=== PATIENT | female | born 1950 | race Caucasian/White ===

== ENCOUNTER → 2018-01-09 14:03 | Outpatient (CLI) | payer MEDICARE, SELFPAY | PROVIDERS: Family Provider Family Medicine; PCP Family Medicine; Visit Provider Family Medicine | DX: R30.0 Dysuria (principal) | CPT/HCPCS: 87086 ==

== ENCOUNTER → 2018-04-29 16:46 | Outpatient (CLI) | payer MEDICARE, SELFPAY ==
[2018-05-02 22:51] LABS: Fecal Immunochemical Test NOT DETECTED
== END ==
PROVIDERS: Family Provider Family Medicine; PCP Family Medicine; Visit Provider Family Medicine
DX: Z12.11 Encounter for screening for malignant neoplasm of colon (principal)
CPT/HCPCS: 82274

== ENCOUNTER → 2019-09-08 11:03 | Outpatient (CLI) | payer MEDICARE, SELFPAY ==
--- NOTE | 2019-09-08 11:05 | DI.US.S_ITS ---
PROCEDURE: US SOFT TISSUE HEAD AND NECK INDICATIONS: RT SIDE BASE OF NECK W/SOFT TISSUE MASS, NONFLUCTUANT TECHNIQUE: Real-time scanning was performed of the neck region of interest, with image documentation. COMPARISON: None. FINDINGS: Small lymph nodes identified in the region of reported abnormal mass in the right neck and measures 0.8 cm in short axis. Incidentally noted is a small lymph node in the left neck the same level that measures 0.6 in meters in short axis. No fluid collections identified that would be concerning for abscess. IMPRESSION: Small, nonpathologic-sized neck lymph nodes. If there is continued clinical concern for neck pathology, CT scan soft tissues of the neck with contrast should be considered for further evaluation. Dictated by: Charito Grayson MD, PhD on 09/08/2019 at 17:32 Approved by: Charito Grayson MD, PhD on 09/08/2019 at 17:34
== END ==
PROVIDERS: PCP Family Medicine; Visit Provider Family Medicine
DX: R22.1 Localized swelling, mass and lump, neck (principal)
CPT/HCPCS: 76536

== ENCOUNTER → 2020-06-09 08:14 | Outpatient (CLI) | payer MEDICARE, SELFPAY ==
[2020-06-09 10:01] LABS: Add Manual Diff / Slide Review NO; Basophils Absolute Auto 100 /uL (0-100); Basophils Percent Auto 0.8 % (0-2); Eosinophils Absolute Auto 100 /uL (0-450); Eosinophils Percent Auto 1.4 % (2-4); Hematocrit 44.1 % (36-46); Hemoglobin 14.9 g/dL (12.0-16.0); Lymphocytes Absolute Auto 1800 /uL (1100-4500); Lymphocytes Percent Auto 24.8 % (25-40); Mean Corpuscular HGB Conc 33.9 % (30-36); Mean Corpuscular Volume 85.6 fL (80-100); Monocytes Absolute Auto 500 /uL (0-900); Monocytes Percent Auto 6.5 % (3-14); Neutrophils Absolute Auto 4800 /uL (1500-7000); Neutrophils Percent Auto 66.5 % (50-75); Platelet Count 265 X10^3/uL (150-400); Red Blood Cell Count 5.15 X10^6/uL (4.0-5.2); Red Cell Distribution Width 13.4 % (11.6-14.8); White Blood Cell Count 7.3 X10^3/uL (4.5-11.0)
[2020-06-09 10:25] LABS: Alanine Aminotransferase 20 IU/L (<35); Albumin 4.1 g/dL (3.5-5.0); Albumin Globulin Ratio 1.4 (1.0-2.8); Alkaline Phosphatase 106 U/L (38-126); Aspartate Aminotransferase 25 IU/L (14-36); Blood Urea Nitrogen 16 mg/dL (7-17); Calcium 9.2 mg/dL (8.4-10.2); Carbon Dioxide 26 mmol/L (22-32); Chloride 106 mmol/L (98-107); Cholesterol 295 mg/dL (140-199); Estimated Glomerular Filt Rate > 60.0 mL/min (>60); Glucose 110 mg/dL (80-110); HDL Cholesterol 46 mg/dL (40-60); HEMOLYSIS < 15 (0-50); LDL Cholesterol Calculated 177 mg/dL (<100); Potassium 4.4 mmol/L (3.4-5.1); Sodium 138 mmol/L (137-145); Total Protein 7.1 g/dL (6.3-8.2); Triglycerides 361 mg/dL (35-150)
[2020-06-12 16:26] LABS: Vitamin B12 425 pg/mL (239-931)
[2020-06-12 16:54] LABS: Vitamin D 25 Hydroxy (D3) < 12.8 ng/mL (30.0-100.0)
== END ==
PROVIDERS: PCP Family Medicine; Referring Provider Family Medicine; Visit Provider Family Medicine
DX: I10 Essential (primary) hypertension (principal); Z86.39 Personal history of other endocrine, nutritional and metabolic disease; Z79.01 Long term (current) use of anticoagulants; E55.9 Vitamin D deficiency, unspecified
CPT/HCPCS: 36415; 80053; 80061; 82306; 82607; 85025

== ENCOUNTER → 2020-07-08 14:43 | Outpatient (CLI) | payer MEDICARE, SELFPAY ==
--- NOTE | 2020-07-08 14:47 | DI.MG.S_ITS ---
BILATERAL DIGITAL SCREENING MAMMOGRAM 3D/2D WITH CAD: 07/08/2020 CLINICAL: Routine screening. Comparison is made to exams dated: 06/04/2007 mammogram, 10/10/2008 mammogram, and 05/06/2014 mammogram - outside location. The tissue of both breasts is predominantly fatty. Current study was also evaluated with a Computer Aided Detection (CAD) system. There is a benign calcification in the right breast. There also are benign post operative findings in the left breast. There is a mole marker on both breasts. There is a 6 mm oval asymmetry with a circumscribed margin in the right breast at 11 o'clock anterior depth. No other significant masses, calcifications, or other findings are seen in either breast. IMPRESSION: INCOMPLETE: NEEDS ADDITIONAL IMAGING EVALUATION The 6 mm oval asymmetry in the right breast is indeterminate. A diagnostic mammogram and ultrasound is recommended. This exam was interpreted at Station ID: [id number]. NOTE: For mammograms, a report in lay terms will be sent to the patient. Approximately 15% of breast malignancies will not be visualized mammographically. In the management of a palpable breast mass, a negative mammogram must not discourage biopsy of a clinically suspicious lesion. Electronically Signed By: Frederick Welsh acr/:07/09/2020 15:06:16 letter sent: Additional Imaging Needed ACR BI-RADS Category 0: Incomplete [id number]
== END ==
PROVIDERS: PCP Family Medicine; Referring Provider Family Medicine; Visit Provider Family Medicine
DX: Z12.31 Encounter for screening mammogram for malignant neoplasm of breast (principal)
CPT/HCPCS: 77063; 77067

== ENCOUNTER → 2021-01-19 09:02 | Outpatient (CLI) | payer MEDICARE, SELFPAY ==
[2021-01-19 10:37] LABS: Cholesterol 296 mg/dL (140-199); HDL Cholesterol 46 mg/dL (40-60); LDL Cholesterol Calculated 175 mg/dL (<100); Triglycerides 374 mg/dL (35-150)
== END ==
PROVIDERS: PCP Family Medicine; Referring Provider Internal Medicine Cardiovascular Disease; Visit Provider Internal Medicine Cardiovascular Disease
DX: E78.00 Pure hypercholesterolemia, unspecified (principal); I47.1 Supraventricular tachycardia
CPT/HCPCS: 36415; 80061

== ENCOUNTER → 2021-08-21 09:49 | Outpatient (ROUT) | payer MEDICARE, SELFPAY ==
[2021-08-21 10:28] LABS: Creatinine Urine Random 150.5 mg/dL
[2021-08-21 10:31] LABS: Microalbumi Creatinin Ratio Ur 16.6 ug/mg CR (<30); Microalbumin Urine Random 2.5 mg/dL (0-1.6)
== END ==
PROVIDERS: PCP Family Medicine; Visit Provider Family Medicine
DX: I10 Essential (primary) hypertension (principal)
CPT/HCPCS: 82043; 82570

== ENCOUNTER → 2022-03-14 09:02 | Outpatient (CLI) | payer MEDICARE, SELFPAY ==
[2022-03-14 10:44] LABS: Add Manual Diff / Slide Review NO; Basophils Absolute Auto 0 /uL (0-100); Basophils Percent Auto 0.8 % (0-2); Eosinophils Absolute Auto 100 /uL (0-450); Eosinophils Percent Auto 1.5 % (2-4); Hematocrit 42.6 % (36-46); Hemoglobin 14.8 g/dL (12.0-16.0); Lymphocytes Absolute Auto 1700 /uL (1100-4500); Mean Corpuscular HGB Conc 34.7 % (30-36); Mean Corpuscular Volume 83.4 fL (80-100); Monocytes Absolute Auto 400 /uL (0-900); Monocytes Percent Auto 6.2 % (3-14); Neutrophils Absolute Auto 3600 /uL (1500-7000); Neutrophils Percent Auto 62.5 % (50-75); Platelet Count 248 X10^3/uL (150-400); Red Blood Cell Count 5.11 X10^6/uL (4.0-5.2); White Blood Cell Count 5.8 X10^3/uL (4.5-11.0)
[2022-03-14 11:13] LABS: Alanine Aminotransferase 19 IU/L (<35); Albumin 3.9 g/dL (3.5-5.0); Albumin Globulin Ratio 1.4 (1.0-2.8); Alkaline Phosphatase 105 U/L (38-126); Aspartate Aminotransferase 26 IU/L (14-36); BUN Creatinine Ratio 18.6 (6-22); Bilirubin Total 0.7 mg/dL (0.2-1.3); Blood Urea Nitrogen 18 mg/dL (7-17); Carbon Dioxide 25 mmol/L (22-32); Chloride 104 mmol/L (98-107); Cholesterol 276 mg/dL (140-199); Estimated Glomerular Filt Rate > 60 mL/min (>60); Globulin 2.8 g/dL (1.7-4.1); Glucose 102 mg/dL (80-110); HDL Cholesterol 46 mg/dL (40-60); HEMOLYSIS < 15 (0-50); LDL Cholesterol Calculated 178 mg/dL (<100); Potassium 4.6 mmol/L (3.4-5.1); Sodium 137 mmol/L (137-145); Total Protein 6.7 g/dL (6.3-8.2); Triglycerides 259 mg/dL (35-150)
[2022-03-14 11:57] LABS: Vitamin B12 545 pg/mL (239-931)
[2022-03-22 12:08] LABS: 1,25-Dihydroxy, Vitamin D-2 <10 pg/mL (.)
== END ==
PROVIDERS: PCP Family Medicine; Referring Provider Family Medicine; Visit Provider Family Medicine
DX: D68.59 Other primary thrombophilia (principal); I10 Essential (primary) hypertension; Z79.01 Long term (current) use of anticoagulants; Z86.718 Personal history of other venous thrombosis and embolism; Z13.220 Encounter for screening for lipoid disorders; E55.9 Vitamin D deficiency, unspecified
CPT/HCPCS: 36415; 80053; 80061; 82607; 82652; 85025

== ENCOUNTER → 2022-11-05 10:00 | Outpatient (CLI) | payer MEDICARE, SELFPAY ==
[2022-11-05 11:59] LABS: BUN Creatinine Ratio 15.6 (6-22); Blood Urea Nitrogen 14 mg/dL (7-17); Calcium 9.1 mg/dL (8.4-10.2); Carbon Dioxide 24 mmol/L (22-32); Chloride 102 mmol/L (98-107); Estimated Glomerular Filt Rate > 60 mL/min (>60); Glucose 102 mg/dL (80-110); HEMOLYSIS < 15 (0-50); Potassium 4.5 mmol/L (3.4-5.1); Sodium 136 mmol/L (137-145)
[2022-11-05 12:26] LABS: TSH w/ Reflex to FT4 1.76 uIU/mL (0.47-4.68)
[2022-11-05 15:29] LABS: Creatinine Urine Random 251.5 mg/dL
[2022-11-05 15:31] LABS: Microalbumi Creatinin Ratio Ur 18.2 ug/mg CR (<30); Microalbumin Urine Random 4.6 mg/dL (0-1.6)
== END ==
PROVIDERS: PCP Family Medicine; Referring Provider Internal Medicine Cardiovascular Disease; Visit Provider Internal Medicine Cardiovascular Disease
DX: I10 Essential (primary) hypertension (principal); E66.9 Obesity, unspecified
CPT/HCPCS: 36415; 80048; 82043; 82570; 84443

== ENCOUNTER → 2022-11-06 13:01 | Outpatient (CLI) | payer MEDICARE, SELFPAY ==
--- NOTE | 2022-11-06 13:03 | DI.MG.S_ITS ---
BILATERAL DIGITAL DIAGNOSTIC MAMMOGRAM 3D/2D SHORT-TERM FOLLOW-UP: 11/06/2022 CLINICAL: Short tem follow of the Right breast; Due Bilateral. Comparison is made to exams dated: 07/08/2020 mammogram - [facility] and 05/06/2014 mammogram - outside [facility]. There are scattered areas of fibroglandular density in both breasts (category b / 25%-50% glandular tissue). There is a stable 6 mm oval asymmetry with a circumscribed margin in the right breast at 11 o'clock anterior depth. No other significant masses, calcifications, or other findings are seen in either breast. IMPRESSION: INCOMPLETE: NEEDS ADDITIONAL IMAGING EVALUATION The stable 6 mm oval asymmetry in the right breast at 11 o'clock anterior depth is indeterminate. A targeted ultrasound is recommended and will immediately follow. Based on the Tyrer Cuzick model (a risk assessment model) the patient's lifetime risk is 3.4% and her 10 year risk is 2.8%. According to the ACR, ACS, and NCCN guidelines, an annual breast MRI exam along with mammogram is recommended if the patient's lifetime risk is 20% or greater. This exam was interpreted at Station ID: [id number]. NOTE: For mammograms, a report in lay terms will be sent to the patient. Approximately 15% of breast malignancies will not be visualized mammographically. In the management of a palpable breast mass, a negative mammogram must not discourage biopsy of a clinically suspicious lesion. Electronically Signed By: Lorne Diaz M.D. slc/:11/06/2022 13:44:12 ACR BI-RADS Category 0: Incomplete 3340F
--- NOTE | 2022-11-06 13:03 | DI.US.S_ITS ---
LIMITED ULTRASOUND OF RIGHT BREAST: 11/06/2022 CLINICAL: Patient returns today to evaluate a focal asymmetry in the right breast. Comparison is made to exams dated: 11/06/2022 mammogram, 07/08/2020 mammogram - [facility], and 05/06/2014 mammogram - outside location. Color flow and real-time ultrasound of the right breast 10 o'clock region were performed. Hayes scale images of the real-time examination were reviewed. There is a benign 0.4 cm x 0.4 cm x 3 mm round complicated cyst in the right breast at 10 o'clock anterior depth 5 cm from the nipple. This round complicated cyst displays internal echoes. This correlates with mammography findings. Color flow imaging demonstrates that there is no vascularity present. IMPRESSION: BENIGN There is no sonographic evidence of malignancy. The 0.4 cm round minimally complicated cyst in the right breast demonstrates long-term stability on mammogram and is benign. A 1 year screening mammogram is recommended. Exam findings were conveyed to the patient. This exam was interpreted at Station ID: [id number]. Electronically Signed By: Lorne Diaz M.D. [facility] [place]/:11/06/2022 15:07:46 letter sent: Normal Exam Ultrasound BI-RADS: 2 Benign
== END ==
PROVIDERS: PCP Family Medicine; Referring Provider Family Medicine; Visit Provider Family Medicine
DX: R92.8 Other abnormal and inconclusive findings on diagnostic imaging of breast (principal); N60.01 Solitary cyst of right breast
CPT/HCPCS: 76642; 77066; G0279

== ENCOUNTER → 2023-01-06 10:20 | Outpatient (CLI) | payer MEDICARE, SELFPAY ==
--- NOTE | 2023-01-06 | DI.US.S_ITS ---
PROCEDURE: US SOFT TISSUE HEAD AND NECK INDICATIONS: RIGHT NECK SWELLING TECHNIQUE: Real-time scanning was performed of the neck region of interest, with image documentation. COMPARISON: [facility], , US SOFT TISSUE HEAD AND NECK, 09/08/2019, 11:17. FINDINGS: No fluid collection or suspicious mass in the area of right lateral neck swelling. No abnormal enlarged lymph nodes. IMPRESSION: 1. No sonographic abnormality in the right lateral neck area of soft tissue swelling. The appearance is stable compared to the exam from 09/08/19. If there is continued concern for mass, improve soft tissue definition with soft tissue neck MRI may be useful. Dictated by: Nicky Bowden M.D. on 01/06/2023 at 11:43 Approved by: Nicky Bowden M.D. on 01/06/2023 at 11:46
--- NOTE | 2023-01-06 | DI.US.S_ITS ---
PROCEDURE: US EXTREMITY NONVASC LOWER RT INDICATIONS: RIGHT INF/MED KNEE SWELLING TECHNIQUE: Real-time scanning was performed of the right knee, with image documentation. COMPARISON: None. FINDINGS: Focused ultrasound examination of medial right knee soft tissue at patient's reported area of palpable lump/swelling shows no discrete soft tissue mass or drainable fluid collection. IMPRESSION: No abnormality is seen in inferior medial right knee at patient's reported area of palpable lump or swelling. Dictated by: Padilla Gross M.D. on 01/06/2023 at 11:07 Approved by: Padilla Gross M.D. on 01/06/2023 at 11:08
== END ==
PROVIDERS: PCP Family Medicine; Referring Provider Family Medicine; Visit Provider Family Medicine
DX: M25.461 Effusion, right knee (principal); M79.89 Other specified soft tissue disorders
CPT/HCPCS: 76536; 76882

== ENCOUNTER → 2023-07-21 11:55 | Outpatient (CLI) | payer MEDICARE, SELFPAY | PROVIDERS: PCP Family Medicine; Visit Provider Family Medicine | DX: Z92.29 Personal history of other drug therapy (principal) | CPT/HCPCS: 87086 ==

== ENCOUNTER → 2023-09-09 12:58 | Outpatient (CLI) | payer MEDICARE, SELFPAY ==
[2023-09-09 14:28] LABS: Add Manual Diff / Slide Review NO; Basophils Absolute Auto 100 /uL (0-100); Basophils Percent Auto 0.9 % (0-2); Eosinophils Absolute Auto 100 /uL (0-450); Hematocrit 44.6 % (36-46); Hemoglobin 15.1 g/dL (12.0-16.0); Lymphocytes Absolute Auto 2200 /uL (1100-4500); Lymphocytes Percent Auto 31.3 % (25-40); Mean Corpuscular HGB Conc 33.8 % (30-36); Mean Corpuscular Hemoglobin 28.8 PG (26-34); Monocytes Absolute Auto 500 /uL (0-900); Monocytes Percent Auto 6.5 % (3-14); Neutrophils Absolute Auto 4200 /uL (1500-7000); Neutrophils Percent Auto 59.3 % (50-75); Platelet Count 271 X10^3/uL (150-400); Red Blood Cell Count 5.25 X10^6/uL (4.0-5.2); Red Cell Distribution Width 13.2 % (11.6-14.8); White Blood Cell Count 7.1 X10^3/uL (4.5-11.0)
[2023-09-09 14:40] LABS: BUN Creatinine Ratio 14.7 (6-22); Blood Urea Nitrogen 14 mg/dL (7-17); Calcium 9.7 mg/dL (8.4-10.2); Carbon Dioxide 25 mmol/L (22-32); Chloride 99 mmol/L (98-107); Cholesterol 304 mg/dL (140-199); Estimated Glomerular Filt Rate > 60 mL/min (>60); Glucose 102 mg/dL (80-110); HDL Cholesterol 51 mg/dL (40-60); HEMOLYSIS < 15 (0-50); LDL Cholesterol Calculated 184 mg/dL (<100); Potassium 4.5 mmol/L (3.4-5.1); Sodium 134 mmol/L (137-145); Triglycerides 343 mg/dL (35-150)
== END ==
LOC: LAB 13:03
PROVIDERS: PCP Family Medicine; Referring Provider Internal Medicine Cardiovascular Disease; Visit Provider Internal Medicine Cardiovascular Disease
DX: E78.00 Pure hypercholesterolemia, unspecified (principal); I10 Essential (primary) hypertension
CPT/HCPCS: 36415; 80048; 80061; 85025

== ENCOUNTER 2024-05-22 10:09 | Emergency (ER) | payer MEDICARE, SELFPAY ==
[2024-05-22 10:15] VITALS: BP 117/73; PULSE 67; RESP 17; TEMP 37.1; O2SAT 99; BMI 35.3
--- NOTE | 2024-05-22 10:21 | ED_ITS ---
HPI - General Adult General Chief complaint: Extremity Problem,Nontraumatic Stated complaint: swelling on calfs Time Seen by Provider: 05/22/24 10:14 Source: patient Mode of arrival: Ambulatory Limitations: no limitations History of Present Illness HPI narrative: Patient is a 73-year-old female. Is on warfarin secondary to history of DVTs. She states her last INR was 2.3 with her goal of being between 2 and 3. She was sent over from the walk-in clinic for evaluation of swelling on both of her calf muscles. She was noticed that over the past 2-3 days. No pain. No trauma. She did have some cramping of the right calf muscle a couple days ago. She was ambulatory. No chest pain. No shortness of breath. No skin changes. Related Data Home Medications Medication Instructions Recorded Confirmed losartan 50 mg tablet 50 mg PO BID ##0 03/22/16 07/21/23 metoprolol succinate 50 mg 100 mg PO DAILY 03/25/18 07/21/23 tablet,extended release 24 hr cholecalciferol (vitamin D3) 50 50 mcg PO DAILY 04/19/22 07/21/23 mcg (2,000 unit) capsule ezetimibe 10 mg tablet 10 mg PO DAILY 11/06/23 lorazepam 1 mg tablet 1 mg PO Q6-8H PRN anxiety 02/12/24 Previous Rx's Medication Instructions Recorded pravastatin 10 mg tablet 10 mg PO BEDTIME #90 tabs 03/19/22 spironolactone 25 mg tablet 12.5 mg (1/2 x 25 mg) PO DAILY #30 10/25/22 tabs amoxicillin 500 mg capsule 1,000 mg (2 x 500 mg) PO Q12H #28 03/21/23 caps amoxicillin 500 mg capsule 2,000 mg (4 x 500 mg) PO DAILY pre 04/16/23 dental work #4 caps ciclopirox 0.77 % topical cream 1 applic topical BID #30 grams 08/08/23 nystatin 100,000 unit/gram topical See Rx Instructions .Route 10/08/23 powder ([facility]) .COMPLEX #60 grams warfarin 4 mg tablet See Rx Instructions .Route 01/02/24 .COMPLEX #90 tabs Allergies Allergy/AdvReac Type Severity Reaction Status Date / Time paroxetine [PAROXETINE] Allergy Mild DRY Verified 05/22/24 10:29 MOUTH,GI UPSET Sulfa (Sulfonamide Allergy Mild RASH Verified 05/22/24 10:29 Antibiotics) [SULFA (SULFONAMIDE ANTIBIOTICS)] rosuvastatin AdvReac Intermediate myalgias, Verified 05/22/24 10:29 cramping Review of Systems Review of Systems Narrative: See HPI Patient History Medical History (Updated 05/22/24 @ 12:18 by Zak Torres DO) Anxiety Measles Chicken pox History of blood clots Protein S deficiency Mitral valve prolapse V tach Hypertension (~2003) Hyperlipidemia (~2003) Deep vein thrombosis (DVT) Cardiac arrhythmia (~2012) Melanoma (~2013) Surgical History Anesthesia History of rhinoplasty Fracture of left ankle (~2000) History of tonsillectomy Status post hysterectomy (~1992) Status post breast biopsy (~1999) Status post breast biopsy (~1987) Family History Father Pancreatic cancer Mother DVT (deep venous thrombosis) Social History marital status: number of children: 2 household members: spouse lives independently: Yes caregiver/support person: No housing: house Smoking Status: Never smoker second hand exposure: No alcohol intake: current substance use type: does not use Smoking Status: Never smoker Exam Initial Vital Signs Initial Vital Signs: Vital Signs Temperature 98.7 F 05/22/24 10:15 Pulse Rate 67 05/22/24 10:15 Respiratory Rate 17 05/22/24 10:15 Blood Pressure 117/73 05/22/24 10:15 Pulse Oximetry 99 05/22/24 10:15 Oxygen Delivery Method Room Air 05/22/24 10:15 Const General: cooperative and comfortable Resp Effort & Inspection: normal respiratory effort Skin General: no rashes or lesions noted Neuro General: patient alert and patient awake Extrem Other: Mild swelling bilateral calf muscles. Right somewhat worse in the left. She does have tenderness along the posterior aspect of the calf muscle. Course Orders Ordered: ED Orders 05/22/24 10:22 US periph venous low extrem bi Stat 05/22/24 10:40 Prothrombin Time INR Stat Vital Signs Vital signs: Vital Signs - 8 hr 05/22/24 10:15 Temperature 98.7 F Pulse Rate 67 Respiratory Rate 17 Blood Pressure 117/73 Pulse Oximetry 99 Oxygen Delivery Method Room Air Medical Decision Making Lab Data Lab results reviewed: Yes I reviewed the patient's lab results. Labs: Lab Results 05/22/24 Range/Units 10:40 PT 25.5 H (9.4-12.5) SECONDS INR 2.2 H (0.9-1.3) Imaging Data US - DVT: Radiologist's Impression: Negative for DVT MDM Narrative Medical decision making narrative: INR is therapeutic. No DVT noted on bilateral DVT ultrasounds. Skin is not c onsistent with cellulitis. No indication for antibiotics. Patient states she was not drinking very much water yesterday so there could be a degree of dehydration. Will discharge patient home with return precautions. She expressed understanding and agreement with plan. Discharge Plan Departure Patient Disposition: Home Clinical Impression: Bilateral leg pain Instructions: DI for Leg Pain Activity Restrictions/Additional Instructions: Continue to take all of your medications as directed. Contact your primary doctor for a follow-up. Return to the emergency department for new or worsening symptoms. Prescriptions: No Action losartan 50 MG tablet 50 mg PO BID Qty: 0 pravastatin 10 mg tablet 10 mg PO BEDTIME Qty: 90 3RF cholecalciferol (vitamin D3) 50 mcg (2,000 unit) capsule 50 mcg PO DAILY spironolactone 25 mg tablet 12.5 mg PO DAILY Qty: 30 0RF amoxicillin 500 mg capsule 1,000 mg PO Q12H Qty: 28 0RF amoxicillin 500 mg capsule 2,000 mg PO DAILY Qty: 4 0RF Rx Instructions: take 2,00mg, 4 tabs, once 30-60 minutes before tooth extraction. ciclopirox 0.77 % cream 1 applic topical BID Qty: 30 1RF nystatin [Nyamyc] 100,000 unit/gram powder See Rx Instructions .ROUTE .COMPLEX Qty: 60 5RF Dose Instruction: APPLY TOPICALLY TO SKIN FOLDS THREE TIMES DAILY NEEDED FOR RASH Rx Instructions: APPLY TOPICALLY TO SKIN FOLDS THREE TIMES DAILY NEEDED FOR RASH ezetimibe 10 mg tablet 10 mg PO DAILY warfarin 4 mg tablet See Rx Instructions .ROUTE .COMPLEX Qty: 90 0RF Dose Instruction: TAKE 1 TABLET BY MOUTH ON , TH & SUN AND TAKE 1/2 TABLET ON MON,WED, FRI, SAT. TARO BRAND ONLY Rx Instructions: TAKE 1 TABLET (4MG) BY MOUTH ON ES, TH,SAT, SUN AND TAKE 1/2 TABLET (2MG) ON ALL OTHER DAYS TARO BRAND ONLY lorazepam 1 mg tablet 1 mg PO Q6-8H PRN (Reason: anxiety) metoprolol succinate 50 mg tablet extended release 24 hr 100 mg PO DAILY Referrals: Lottie Cervantes MD [Primary Care Provider] - Stand Alone Forms: Patient Portal/API
--- NOTE | 2024-05-22 10:22 | DI.US.S_ITS ---
PROCEDURE: US PERIPH VENOUS LOW EXTREM BI INDICATIONS: PAIN, EDEMA TECHNIQUE: Real-time imaging, as well as color and pulse Doppler interrogation, were performed of the deep veins of both legs from the inguinal ligament to the popliteal fossa, with documentation of the visualized calf veins. COMPARISON: None. FINDINGS: Right: The common femoral, femoral, popliteal, and the visualized calf veins are normally compressible, and free of intraluminal thrombus. Color and pulse Doppler demonstrate normal phasic intravascular flow. There is normal augmentation response to distal compression maneuver. Left: The common femoral, femoral, popliteal, and the visualized calf veins are normally compressible, and free of intraluminal thrombus. Color and pulse Doppler demonstrate normal phasic intravascular flow. There is normal augmentation response to distal compression maneuver. IMPRESSION: No findings of deep venous thrombosis in either lower extremity. Approved by: Yair Shen M.D. on 05/23/2024 at 0:27
[2024-05-22 10:54] LABS: INR 2.2 (0.9-1.3); Prothrombin Time 25.5 SECONDS (9.4-12.5)
[2024-05-22 12:28] VITALS: BP 161/80; PULSE 57; RESP 14; O2SAT 98
== END 2024-05-22 12:29 | disposition home or self-care (01) ==
PROVIDERS: Emergency Provider Emergency Medicine; PCP Family Medicine
DX: M79.605 Pain in left leg (principal); M79.604 Pain in right leg; R60.0 Localized edema; Z79.01 Long term (current) use of anticoagulants
CPT/HCPCS: 36415; 85610; 93970; 99281; 99283

== ENCOUNTER 2024-06-01 11:47 | Emergency (ER) | payer MEDICARE, SELFPAY ==
[2024-06-01 11:51] VITALS: BP 237/114; PULSE 80; RESP 18; TEMP 37.1; O2SAT 99; BMI 35.3
--- NOTE | 2024-06-01 12:19 | DI.RAD.S_ITS ---
PROCEDURE: XR FOOT RT MIN 3V INDICATIONS: pain to medial aspect of foot TECHNIQUE: 3 views of the foot were acquired. COMPARISON: None. FINDINGS: Bones: No fractures or dislocations. No suspicious bony lesions. Calcaneal bone spur. Soft tissues: No tibiotalar joint effusion. Achilles tendon appears normal. IMPRESSION: No acute bony abnormality. Dictated by: Charito Grayson MD, PhD on 06/01/2024 at 13:01 Approved by: Charito Grayson MD, PhD on 06/01/2024 at 13:03
--- NOTE | 2024-06-01 12:20 | ED_ITS ---
HPI - Extremity Problem General Chief complaint: Extremity Problem,Nontraumatic Stated complaint: leg swelling, redness Time Seen by Provider: 06/01/24 12:19 Source: patient Mode of arrival: Ambulatory History of Present Illness HPI Narrative: Patient past medical history of hypertension, hyperlipidemia, blood clots on warfarin comes into the ED from home for evaluation of redness and pain to right foot. States she was here few days ago had ultrasound which was negative for any blood clots, states that she woke up today noticed some redness to the medial aspect of her right foot denies any known trauma. No other symptoms Related Data Home Medications Medication Instructions Recorded Confirmed losartan 50 mg tablet 50 mg PO BID ##0 03/22/16 07/21/23 metoprolol succinate 50 mg 100 mg PO DAILY 03/25/18 07/21/23 tablet,extended release 24 hr cholecalciferol (vitamin D3) 50 50 mcg PO DAILY 04/19/22 07/21/23 mcg (2,000 unit) capsule ezetimibe 10 mg tablet 10 mg PO DAILY 11/06/23 lorazepam 1 mg tablet 1 mg PO Q6-8H PRN anxiety 02/12/24 Previous Rx's Medication Instructions Recorded pravastatin 10 mg tablet 10 mg PO BEDTIME #90 tabs 03/19/22 spironolactone 25 mg tablet 12.5 mg (1/2 x 25 mg) PO DAILY #30 10/25/22 tabs amoxicillin 500 mg capsule 1,000 mg (2 x 500 mg) PO Q12H #28 03/21/23 caps amoxicillin 500 mg capsule 2,000 mg (4 x 500 mg) PO DAILY pre 04/16/23 dental work #4 caps ciclopirox 0.77 % topical cream 1 applic topical BID #30 grams 08/08/23 nystatin 100,000 unit/gram topical See Rx Instructions .Route 10/08/23 powder ([facility]) .COMPLEX #60 grams warfarin 4 mg tablet See Rx Instructions .Route 01/02/24 .COMPLEX #90 tabs cephalexin 500 mg capsule 500 mg PO QID 5 days #20 caps 06/01/24 Allergies Allergy/AdvReac Type Severity Reaction Status Date / Time paroxetine [PAROXETINE] Allergy Mild DRY Verified 05/22/24 10:29 MOUTH,GI UPSET Sulfa (Sulfonamide Allergy Mild RASH Verified 05/22/24 10:29 Antibiotics) [SULFA (SULFONAMIDE ANTIBIOTICS)] rosuvastatin AdvReac Intermediate myalgias, Verified 05/22/24 10:29 cramping Review of Systems Review of Systems Narrative: HEENT: Denies headache, eye drainage, eye irritation, head trauma, sore throat, voice change Cardiovascular: Denies any chest pain, palpitations, shortness of breath, tachycardia Respiratory: Denies any shortness of breath, cough, wheeze, stridor GI/: Denies any abdominal pain, nausea, vomiting, diarrhea, bright red blood per rectum, melanotic stools, urinary frequency, urinary retention, dysuria, hematuria MSK: Redness and pain to the right foot Skin: Redness and pain to the medial aspect of the right foot but no overlying streaking erythema edema Neuro: Denies any headache, lightheadedness, dizziness, fainting, weakness Psych: Denies SI/HI Patient History Medical History (Updated 06/01/24 @ 14:00 by Blake Garcia DO) Anxiety Measles Chicken pox History of blood clots Protein S deficiency Mitral valve prolapse V tach Hypertension (~2003) Hyperlipidemia (~2003) Deep vein thrombosis (DVT) Cardiac arrhythmia (~2012) Melanoma (~2013) Surgical History Anesthesia History of rhinoplasty Fracture of left ankle (~2000) History of tonsillectomy Status post hysterectomy (~1992) Status post breast biopsy (~1999) Status post breast biopsy (~1987) Family History Father Pancreatic cancer Mother DVT (deep venous thrombosis) Social History marital status: number of children: 2 household members: spouse lives independently: Yes caregiver/support person: No housing: house Smoking Status: Never smoker second hand exposure: No alcohol intake: current substance use type: does not use Smoking Status: Never smoker alcohol intake frequency: other Substance Use Type: does not use Exam Initial Vital Signs Initial Vital Signs: Vital Signs Temperature 98.7 F 06/01/24 11:51 Pulse Rate 80 06/01/24 11:51 Respiratory Rate 18 06/01/24 11:51 Blood Pressure 237/114 H 06/01/24 11:51 Pulse Oximetry 99 06/01/24 11:51 Oxygen Delivery Method Room Air 06/01/24 11:51 Course Orders Ordered: ED Orders 06/01/24 12:19 XR foot RT min 3V Stat Vital Signs Vital signs: Vital Signs - 8 hr 06/01/24 11:51 Temperature 98.7 F Pulse Rate 80 Respiratory Rate 18 Blood Pressure 237/114 H Pulse Oximetry 99 Oxygen Delivery Method Room Air MDM - Extremity (Nontraumatic) MDM Narrative Medical decision making narrative: Patient is 73-year-old female history of hypertension hyperlipidemia blood clot on warfarin comes in for redness and pain to the right foot. X-ray was unremarkable, overlying physical exam were consistent with a cellulitis, patient with be treated with oral antibiotics sent home with outpatient follow-up. Strict return precautions given safe for discharge home with outpatient follow up Discharge Plan Departure Patient Disposition: Home Clinical Impression: Cellulitis Activity Restrictions/Additional Instructions: Please read the discharge instructions sheet carefully and bring all papers to all doctor follow-up visits, as it may contain information that your doctor may want to see. Disease processes change and evolve, if your symptoms worsen or if you develop any new symptoms that are concerning to you please return for evaluation. Your evaluation today does not show any evidence of any life- threatening/serious illnesses requiring admission to the hospital or surgery. Please follow-up with your doctor for re-evaluation in approximately 1 day. Seek immediate medical attention for any worrisome symptoms. Prescriptions: New cephalexin 500 mg capsule 500 mg PO QID 5 Days Qty: 20 0RF No Action losartan 50 MG tablet 50 mg PO BID Qty: 0 pravastatin 10 mg tablet 10 mg PO BEDTIME Qty: 90 3RF cholecalciferol (vitamin D3) 50 mcg (2,000 unit) capsule 50 mcg PO DAILY spironolactone 25 mg tablet 12.5 mg PO DAILY Qty: 30 0RF amoxicillin 500 mg capsule 1,000 mg PO Q12H Qty: 28 0RF amoxicillin 500 mg capsule 2,000 mg PO DAILY Qty: 4 0RF Rx Instructions: take 2,00mg, 4 tabs, once 30-60 minutes before tooth extraction. ciclopirox 0.77 % cream 1 applic topical BID Qty: 30 1RF nystatin [Nyamyc] 100,000 unit/gram powder See Rx Instructions .ROUTE .COMPLEX Qty: 60 5RF Dose Instruction: APPLY TOPICALLY TO SKIN FOLDS THREE TIMES DAILY NEEDED FOR RASH Rx Instructions: APPLY TOPICALLY TO SKIN FOLDS THREE TIMES DAILY NEEDED FOR RASH ezetimibe 10 mg tablet 10 mg PO DAILY warfarin 4 mg tablet See Rx Instructions .ROUTE .COMPLEX Qty: 90 0RF Dose Instruction: TAKE 1 TABLET BY MOUTH ON TU, TH & SUN AND TAKE 1/2 TABLET ON MON,WED, FRI, SAT. TARO BRAND ONLY Rx Instructions: TAKE 1 TABLET (4MG) BY MOUTH ON , TH,SAT, SUN AND TAKE 1/2 TABLET (2MG) ON ALL OTHER DAYS TARO BRAND ONLY lorazepam 1 mg tablet 1 mg PO Q6-8H PRN (Reason: anxiety) metoprolol succinate 50 mg tablet extended release 24 hr 100 mg PO DAILY Referrals: Lottie Cervantes MD [Primary Care Provider] - Stand Alone Forms: Patient Portal/API
[2024-06-01 13:02] VITALS: BP 187/76
[2024-06-01 14:09] VITALS: BP 140/75
[2024-06-01 14:15] VITALS: PULSE 60; RESP 18; TEMP 37.2; O2SAT 97
== END 2024-06-01 14:15 | disposition home or self-care (01) ==
PROVIDERS: Emergency Provider Student in an Organized Health Care Education/Training Program; PCP Family Medicine
DX: L03.115 Cellulitis of right lower limb (principal); I10 Essential (primary) hypertension; E78.5 Hyperlipidemia, unspecified; Z79.01 Long term (current) use of anticoagulants
CPT/HCPCS: 73630; 99283

== ENCOUNTER → 2024-09-13 10:00 | Outpatient (CLI) | payer MEDICARE, SELFPAY ==
--- NOTE | 2024-09-13 10:01 | DI.US.S_ITS ---
PROCEDURE: US PERIPH VENOUS LOW EXTREM LT INDICATIONS: leg swollen, painful TECHNIQUE: Real-time imaging, as well as color and pulse Doppler interrogation, were performed of the lower extremity deep veins from the inguinal ligament to the popliteal fossa, with documentation of the visualized calf veins. COMPARISON: None. FINDINGS: The common femoral, femoral, popliteal, and the visualized calf veins are normally compressible, and free of intraluminal thrombus. Color and pulse Doppler demonstrate normal phasic intraluminal flow. There is normal augmentation response to distal compression maneuver. IMPRESSION: Negative left lower extremity duplex venous ultrasound for DVT. Dictated by: Yousuf Gaytan M.D. on 09/13/2024 at 10:36 Approved by: Yousuf Gaytan M.D. on 09/13/2024 at 10:36
== END ==
PROVIDERS: PCP Family Medicine; Referring Provider Family Medicine; Visit Provider Family Medicine
DX: Z86.718 Personal history of other venous thrombosis and embolism (principal)
CPT/HCPCS: 93971

== ENCOUNTER → 2024-09-15 13:26 | Outpatient (CLI) | payer MEDICARE, SELFPAY ==
[2024-09-15 13:53] LABS: Prothrombin Time 21.9 SECONDS (9.4-12.5)
== END ==
PROVIDERS: PCP Family Medicine; Referring Provider Family Medicine; Visit Provider Family Medicine
DX: Z79.01 Long term (current) use of anticoagulants (principal); Z86.718 Personal history of other venous thrombosis and embolism; D68.59 Other primary thrombophilia
CPT/HCPCS: 36415; 85610

== ENCOUNTER → 2024-09-23 14:07 | Outpatient (CLI) | payer MEDICARE, SELFPAY ==
[2024-09-23 15:29] LABS: INR 2.3 (0.9-1.3); Prothrombin Time 25.9 SECONDS (9.4-12.5)
== END ==
PROVIDERS: PCP Family Medicine; Referring Provider Family Medicine; Visit Provider Family Medicine
DX: D68.59 Other primary thrombophilia (principal); Z79.01 Long term (current) use of anticoagulants; Z86.718 Personal history of other venous thrombosis and embolism
CPT/HCPCS: 36415; 85610

== ENCOUNTER → 2024-10-14 15:36 | Outpatient (CLI) | payer MEDICARE, SELFPAY ==
--- NOTE | 2024-10-14 15:37 | DI.US.S_ITS ---
PROCEDURE: US PERIP VENOUS LOW EXTREM LT INDICATIONS: EDEMA TECHNIQUE: Real-time imaging, as well as color and pulse Doppler interrogation, were performed of the lower extremity deep veins from the inguinal ligament to the popliteal fossa, with documentation of the visualized calf veins. COMPARISON: [facility], , [facility] VENOUS LOW EXTREM LT, 09/13/2024, 10:07. FINDINGS: The common femoral, femoral, popliteal, and the visualized calf veins are normally compressible, and free of intraluminal thrombus. Color and pulse Doppler demonstrate normal phasic intraluminal flow. There is normal augmentation response to distal compression maneuver. IMPRESSION: No evidence of DVT in visualized left lower extremity veins. Dictated by: Padilla Gross M.D. on 10/14/2024 at 16:46 Approved by: Padilla Gross M.D. on 10/14/2024 at 16:46
[2024-10-14 22:57] LABS: INR 1.8 (0.9-1.3); Prothrombin Time 20.3 SECONDS (9.4-12.5)
== END ==
PROVIDERS: PCP Family Medicine; Referring Provider Family Medicine; Visit Provider Family Medicine
DX: M79.89 Other specified soft tissue disorders (principal); D68.59 Other primary thrombophilia; Z86.718 Personal history of other venous thrombosis and embolism; Z79.01 Long term (current) use of anticoagulants
CPT/HCPCS: 36415; 85610; 93971

== ENCOUNTER → 2024-10-20 09:35 | Outpatient (CLI) | payer MEDICARE, SELFPAY ==
[2024-10-20 10:37] LABS: INR 2.2 (0.9-1.3); Prothrombin Time 24.4 SECONDS (9.4-12.5)
[2024-10-20 10:43] LABS: Creatinine Urine Random 241.77 mg/dL
[2024-10-20 10:49] LABS: Microalbumin Urine Random 5.2 mg/dL (0-1.6)
== END ==
PROVIDERS: PCP Family Medicine; Referring Provider Family Medicine; Visit Provider Family Medicine
DX: D68.59 Other primary thrombophilia (principal); Z79.01 Long term (current) use of anticoagulants; Z86.718 Personal history of other venous thrombosis and embolism; I10 Essential (primary) hypertension
CPT/HCPCS: 36415; 82043; 82570; 85610

== ENCOUNTER → 2024-11-10 10:43 | Outpatient (CLI) | payer MEDICARE, SELFPAY ==
--- NOTE | 2024-11-10 10:45 | DI.US.S_ITS ---
PROCEDURE: US ARTERIAL DUPLEX LE LT INDICATIONS: DISCOLORATION TOE TECHNIQUE: Color and pulse Doppler interrogation was performed of the left lower extremity arterial system, with image documentation. COMPARISON: None. FINDINGS: Common femoral artery: 177 cm/sec, with biphasic flow. Deep femoral artery: 72 cm/sec, with biphasic flow. Proximal superficial femoral artery: 127 cm/sec, with biphasic flow. Mid superficial femoral artery: 118 cm/sec, with triphasic flow. Distal superficial femoral artery: 100 cm/sec, with triphasic flow. Popliteal artery: 97 cm/sec, with triphasic flow. Posterior tibial artery: 44 cm/sec, with biphasic flow. Anterior tibial artery/dorsalis pedis: 129 cm/sec, with biphasic flow. Hayes-scale imaging description: Trace plaque seen within the dorsalis pedis artery. Brunner's cyst measuring 3.3 cm x 5 cm x 0.6 cm. IMPRESSION: Patent lower extremity vasculature, without hemodynamically significant stenosis. Dictated by: Marcel Ozuna M.D. on 11/10/2024 at 17:05 Approved by: Marcel Ozuna M.D. on 11/10/2024 at 17:07
== END ==
LOC: US 10:44
PROVIDERS: PCP Family Medicine; Referring Provider Family Medicine; Visit Provider Family Medicine
DX: M79.89 Other specified soft tissue disorders (principal)
CPT/HCPCS: 93926

== ENCOUNTER → 2024-12-04 12:01 | Outpatient (CLI) | payer MEDICARE, SELFPAY ==
[2024-12-04 12:25] LABS: Add Manual Diff / Slide Review NO; Basophils Absolute Auto 0 /uL (0-100); Basophils Percent Auto 0.6 % (0-2); Eosinophils Absolute Auto 100 /uL (0-450); Eosinophils Percent Auto 1.8 % (2-4); Hematocrit 45.4 % (36-46); Hemoglobin 15.1 g/dL (12.0-16.0); Lymphocytes Absolute Auto 2300 /uL (1100-4500); Lymphocytes Percent Auto 32.3 % (25-40); Mean Corpuscular HGB Conc 33.2 % (30-36); Mean Corpuscular Hemoglobin 28.7 PG (26-34); Mean Corpuscular Volume 86.3 fL (80-100); Monocytes Absolute Auto 500 /uL (0-900); Neutrophils Absolute Auto 4100 /uL (1500-7000); Neutrophils Percent Auto 58.3 % (50-75); Platelet Count 271 X10^3/uL (150-400); Red Blood Cell Count 5.26 X10^6/uL (4.0-5.2); Red Cell Distribution Width 13.7 % (11.6-14.8)
[2024-12-04 12:42] LABS: INR 1.9 (0.9-1.3); Prothrombin Time 20.9 SECONDS (9.4-12.5)
[2024-12-04 12:53] LABS: BUN Creatinine Ratio 16.1 (6-22); Blood Urea Nitrogen 14 mg/dL (7-17); Calcium 9.5 mg/dL (8.4-10.2); Carbon Dioxide 28 mmol/L (22-32); Chloride 101 mmol/L (98-107); Cholesterol 315 mg/dL (140-199); Estimated Glomerular Filt Rate > 60 mL/min (>60); Glucose 112 mg/dL (80-110); HDL Cholesterol 57 mg/dL (40-60); HEMOLYSIS < 15 (0-50); LDL Cholesterol Calculated 201 mg/dL (<100); Sodium 137 mmol/L (137-145); Triglycerides 283 mg/dL (35-150)
== END ==
PROVIDERS: Family Medicine; Referring Provider Internal Medicine Cardiovascular Disease; Visit Provider Internal Medicine Cardiovascular Disease
DX: D68.59 Other primary thrombophilia (principal); I10 Essential (primary) hypertension; I47.10 Supraventricular tachycardia, unspecified; Z79.01 Long term (current) use of anticoagulants; E78.00 Pure hypercholesterolemia, unspecified; Z86.718 Personal history of other venous thrombosis and embolism
CPT/HCPCS: 36415; 80048; 80061; 85025; 85610

== ENCOUNTER → 2025-01-21 15:26 | Outpatient (ROUT) | payer MEDICARE, SELFPAY ==
[2025-01-21 15:43] LABS: INR 1.9 (0.9-1.3); Prothrombin Time 21.1 SECONDS (9.4-12.5)
== END ==
PROVIDERS: Visit Provider Family Medicine
DX: Z86.718 Personal history of other venous thrombosis and embolism (principal)
CPT/HCPCS: 85610

== ENCOUNTER → 2025-02-09 15:26 | Outpatient (CLI) | payer MEDICARE, SELFPAY ==
[2025-02-09 16:17] LABS: INR 1.9 (0.9-1.3); Prothrombin Time 21.3 SECONDS (9.4-12.5)
== END ==
LOC: LAB 15:29
PROVIDERS: PCP Family Medicine; Referring Provider Family Medicine; Visit Provider Family Medicine
DX: Z86.718 Personal history of other venous thrombosis and embolism (principal)
CPT/HCPCS: 36415; 85610

== ENCOUNTER → 2025-02-24 14:44 | Outpatient (CLI) | payer MEDICARE, SELFPAY ==
[2025-02-24 15:39] LABS: INR 2.3 (0.9-1.3); Prothrombin Time 25.6 SECONDS (9.4-12.5)
== END ==
PROVIDERS: PCP Family Medicine; Referring Provider Family Medicine; Visit Provider Family Medicine
DX: Z86.718 Personal history of other venous thrombosis and embolism (principal)
CPT/HCPCS: 36415; 85610

== ENCOUNTER → 2025-03-10 15:13 | Outpatient (CLI) | payer MEDICARE, SELFPAY ==
[2025-03-10 15:58] LABS: INR 1.9 (0.9-1.3); Prothrombin Time 21.2 SECONDS (9.4-12.5)
== END ==
PROVIDERS: PCP Family Medicine; Referring Provider Family Medicine; Visit Provider Family Medicine
DX: Z86.718 Personal history of other venous thrombosis and embolism (principal)
CPT/HCPCS: 36415; 85610

== ENCOUNTER → 2025-03-15 15:18 | Outpatient (CLI) | payer MEDICARE, SELFPAY ==
--- NOTE | 2025-03-15 15:23 | DI.US.S_ITS ---
PROCEDURE: US PERIP VENOUS LOW EXTREM LT INDICATIONS: LEG SWELLING TECHNIQUE: Real-time imaging, as well as color and pulse Doppler interrogation, were performed of the lower extremity deep veins from the inguinal ligament to the popliteal fossa, with documentation of the visualized calf veins. COMPARISON: [facility], , [facility] VENOUS LOW EXTREM LT, 10/14/2024, 15:57. FINDINGS: The common femoral, femoral, popliteal, and the visualized calf veins are normally compressible, and free of intraluminal thrombus. Color and pulse Doppler demonstrate normal phasic intraluminal flow. There is normal augmentation response to distal compression maneuver. Posterior tibial and peroneal veins are not well seen secondary to edema. Popliteal fossa fluid measuring 5.0 x 0.7 x 0.9 cm. IMPRESSION: No findings of lower extremity deep venous thrombosis. Dictated by: Leonel Panchal M.D. on 03/15/2025 at 16:36 Approved by: Leonel Panchal M.D. on 03/15/2025 at 16:37
== END ==
PROVIDERS: PCP Family Medicine; Referring Provider Family Medicine; Visit Provider Family Medicine
DX: M79.605 Pain in left leg (principal); M79.89 Other specified soft tissue disorders
CPT/HCPCS: 93971

== ENCOUNTER → 2025-03-25 08:49 | Outpatient (CLI) | payer MEDICARE, SELFPAY ==
[2025-03-25 09:45] LABS: INR 2.6 (0.9-1.3); Prothrombin Time 28.7 SECONDS (9.4-12.5)
== END ==
PROVIDERS: PCP Family Medicine; Referring Provider Family Medicine; Visit Provider Family Medicine
DX: Z86.718 Personal history of other venous thrombosis and embolism (principal)
CPT/HCPCS: 36415; 85610

== ENCOUNTER → 2025-04-08 15:38 | Outpatient (CLI) | payer MEDICARE, SELFPAY ==
[2025-04-08 17:17] LABS: INR 2.5 (0.9-1.3); Prothrombin Time 27.6 SECONDS (9.4-12.5)
== END ==
LOC: LAB 15:39
PROVIDERS: PCP Family Medicine; Referring Provider Family Medicine; Visit Provider Family Medicine
DX: Z86.718 Personal history of other venous thrombosis and embolism (principal)
CPT/HCPCS: 36415; 85610

== ENCOUNTER → 2025-05-06 15:27 | Outpatient (ROUT) | payer MEDICARE, SELFPAY ==
[2025-05-06 15:46] LABS: INR 2.5 (0.9-1.3); Prothrombin Time 27.2 SECONDS (9.4-12.5)
== END ==
PROVIDERS: PCP Family Medicine; Visit Provider Family Medicine
DX: Z86.718 Personal history of other venous thrombosis and embolism (principal)
CPT/HCPCS: 85610

== ENCOUNTER → 2025-05-27 14:18 | Outpatient (CLI) | payer MEDICARE, SELFPAY ==
[2025-05-27 14:44] LABS: INR 2.4 (0.9-1.3); Prothrombin Time 26.7 SECONDS (9.4-12.5)
== END ==
PROVIDERS: PCP Family Medicine; Referring Provider Family Medicine; Visit Provider Family Medicine
DX: Z86.718 Personal history of other venous thrombosis and embolism (principal)
CPT/HCPCS: 36415; 85610

== ENCOUNTER → 2025-06-10 15:11 | Outpatient (ROUT) | payer MEDICARE, SELFPAY ==
[2025-06-10 15:30] LABS: INR 2.3 (0.9-1.3); Prothrombin Time 25.5 SECONDS (9.4-12.5)
== END ==
PROVIDERS: PCP Family Medicine; Visit Provider Family Medicine
DX: Z86.718 Personal history of other venous thrombosis and embolism (principal)
CPT/HCPCS: 85610

== ENCOUNTER → 2025-06-15 16:11 | Outpatient (CLI) | payer MEDICARE, SELFPAY ==
--- NOTE | 2025-06-15 16:13 | DI.US.S_ITS ---
PROCEDURE: US CAROTID DOPPLER BI INDICATIONS: ASCVD TECHNIQUE: Color and pulse Doppler interrogation was performed of both carotid systems, with image documentation and velocity measurements. COMPARISON: None. FINDINGS: Stenosis calculations are based on SRU (Society of [employer] in Ultras[employer]) criteria. Right side: Common carotid artery peak systolic velocity: 64 cm/sec. Internal carotid artery peak systolic velocity: 132 cm/sec. Internal carotid artery end diastolic velocity: 31 cm/sec. External carotid artery peak systolic velocity: 110 cm/sec. ICA/CCA peak systolic ratio: 2.1 . Hayes scale imaging description: Moderate scattered plaque. Percent internal carotid artery stenosis: 50-69% stenosis . Vertebral artery: Flow direction is antegrade. Left side: Common carotid artery peak systolic velocity: 82 cm/sec. Internal carotid artery peak systolic velocity: 109 cm/sec. Internal carotid artery end diastolic velocity: 34 cm/sec. External carotid artery peak systolic velocity: 109 cm/sec. ICA/CCA peak systolic ratio: 1.3 . Hayes scale imaging description: Moderate scattered plaque. Percent internal carotid artery stenosis: Less than 50% . Vertebral artery: Flow direction is antegrade. IMPRESSION: 1. In the right carotid artery, there is 50-69% stenosis based on peak systolic velocity criteria. 2. In the left carotid artery, there is less than 50% stenosis based on peak systolic velocity criteria. 3. Antegrade vertebral arteries. Dictated by: Boy Sidhu [facility] Interpreted: Oscar Dorsey MD on 06/16/2025 at 10:21 Transcribed by: DIXON on 06/16/2025 at 10:23 Approved by: Oscar Dorsey M.D. on 06/16/2025 at 15:14
== END ==
LOC: US 16:12
PROVIDERS: PCP Family Medicine; Referring Provider Family Medicine; Visit Provider Family Medicine
DX: I25.10 Atherosclerotic heart disease of native coronary artery without angina pectoris (principal); I65.23 Occlusion and stenosis of bilateral carotid arteries
CPT/HCPCS: 93880

== ENCOUNTER → 2025-07-01 14:48 | Outpatient (ROUT) | payer MEDICARE, SELFPAY ==
[2025-07-01 15:05] LABS: INR 2.6 (0.9-1.3); Prothrombin Time 28.4 SECONDS (9.4-12.5)
== END ==
PROVIDERS: PCP Family Medicine; Visit Provider Family Medicine
DX: Z86.718 Personal history of other venous thrombosis and embolism (principal)
CPT/HCPCS: 85610

== ENCOUNTER → 2025-07-09 09:08 | Outpatient (CLI) | payer MEDICARE, SELFPAY ==
[2025-07-09 11:26] LABS: INR 2.3 (0.9-1.3); Prothrombin Time 25.0 SECONDS (9.4-12.5)
[2025-07-09 11:43] LABS: Cholesterol 283 mg/dL (140-199); HDL Cholesterol 57 mg/dL (40-60); Triglycerides 241 mg/dL (35-150)
== END ==
PROVIDERS: PCP Family Medicine; Referring Provider Family Medicine; Visit Provider Family Medicine
DX: Z13.220 Encounter for screening for lipoid disorders (principal); Z86.718 Personal history of other venous thrombosis and embolism
CPT/HCPCS: 36415; 80061; 82172; 83721; 85610

== ENCOUNTER → 2025-08-05 09:27 | Outpatient (ROUT) | payer MEDICARE, SELFPAY ==
[2025-08-05 09:42] LABS: INR 2.3 (0.9-1.3); Prothrombin Time 26.0 SECONDS (9.4-12.5)
== END ==
PROVIDERS: PCP Family Medicine; Visit Provider Family Medicine
DX: Z86.718 Personal history of other venous thrombosis and embolism (principal)
CPT/HCPCS: 85610